=== PATIENT | female | born 1950 | race Caucasian/White ===

== ENCOUNTER 2017-08-29 05:47 | Day surgery (SDC) | payer OTHER ==
[~2017-08-29] VITALS: Ht 157.5 cm; Wt 54.5 kg
[~2017-08-29 05:47] MED LIST: CALCIUM 600 +1 EA16 PO; METAMUCIL POWD822 GM PO; NOHOMEMEDS; TRIPLE OMEGA C400 MG PO
[2017-08-29 06:20] VITALS: BP 136/70
[2017-08-29 10:25] VITALS: BP 129/66
[2017-08-29 11:25] VITALS: BP 133/68
[2017-08-29 12:50] VITALS: BP 126/58
== END 2017-08-29 13:00 | disposition home or self-care (01) ==
LOC: SDC 05:47
DX: M20.11 Hallux valgus (acquired), right foot (principal); M24.574 Contracture, right foot; M25.571 Pain in right ankle and joints of right foot; E78.5 Hyperlipidemia, unspecified
CPT/HCPCS: 73660; 76000; J0690; J1100; J1885; J2405; J3010; S0020